=== PATIENT | male | born 1950 | race Caucasian/White ===

== ENCOUNTER 2017-09-24 12:14 | Emergency (ER) | payer OTHER, MEDICARE ==
[~2017-09-24] VITALS: Ht 182.9 cm; Wt 93.0 kg
[~2017-09-24 12:14] MED LIST: NORCO 5-325 TA1 EACH PO; ROBAXIN-750750 M1 PO
--- NOTE | 2017-09-24 13:11 | ED UPPER/LOWER EXTREMITY COMPL ---
History of Present Illness General Chief Complaint: Lower Extremity Problems Stated Complaint: RT LEG CLOT Source: patient Exam Limitations: no limitations Vital Signs & Intake/Output Vital Signs & Intake/Output Vital Signs Date Time Temp Pulse Resp B/P B/P Pulse O2 O2 Flow FiO2 Mean Ox Delivery Rate 09/24 1417 98.5 78 17 133/74 97 Room Air 09/24 1242 96.4 80 18 143/84 96 Room Air Allergies Coded Allergies: No Known Allergies (09/23/17) Reconcile Medications Hydrocodone/Acetaminophen (Esbon 5-325 Tablet) 5 MG-325 MG TABLET 1-2 TAB PO Q4-6 PRN PRN severe pain Methocarbamol (Robaxin-750) 750 MG TABLET 1 TAB PO TID PRN PAIN Rivaroxaban (Xarelto) 15 MG TABLET 1 TAB PO BID DVT TAKE WITH FOOD Triage Note: PT TO ER C/C +RLE DVT CONFIRMED VIA U/S AT [facility] THIS AM. 7/10 PAIN, TOOK NORCO TAB AT 1000. DENIES C/P OR SOB. + SWELLING TO RLE Triage Nurses Notes Reviewed? yes Onset: Gradual Duration: getting worse Timing: recent history Severity: moderate Severity Numbers: 5 HPI: Patient is a 67-year-old male with an unremarkable past medical history who has 100 year pack history smoker who presents emergency room 5 days ago patient actually struck the back of his calf to a boat and since patient has been complaining of worsening pain and swelling to the calf and behind the knee region. Patient was evaluated yesterday [place] [facility] room for his right calf and knee pain where he received blood work and x-rays with unremarkable findings patient was advised to present to [facility] the following days, today to receive ultrasound which patient has a verbal over the phone findings to Dr. AYOUB for concerns of complete occlusion of the popliteal vein to the right lower extremity. Patient denies any fever chills chest pain arm pain jaw pain hemoptysis dyspnea on exertion and shortness of breath palpitations or extremity paresthesia weakness. (Luke Palomino) Past History Travel History Traveled to [place] past 21 day No Medical History Any Pertinent Medical History? none Neurological: NONE EENT: NONE Cardiovascular: NONE Respiratory: NONE Gastrointestinal: NONE Hepatic: NONE Renal: NONE Musculoskeletal: NONE Psychiatric: NONE Endocrine: NONE Blood Disorders: NONE Surgical History Surgical History: non-contributory Psychosocial History What is your primary language Ghanaian Tobacco Use: Current Daily Use Daily Tobacco Use Amount/Type: => 5 Cigarettes daily Family History Hx Contributory? No (Luke Palomino) Review of Systems Review of Systems Constitutional: Reports: no symptoms. EENTM: Reports: no symptoms. Respiratory: Reports: no symptoms. Cardiovascular: Reports: no symptoms. Gastrointestinal/Abdominal: Reports: no symptoms. Genitourinary: Reports: no symptoms. Musculoskeletal: Reports: see HPI, joint pain, joint swelling. Skin: Reports: no symptoms. Neurological/Psychological: Reports: no symptoms. Hematologic/Endocrine: Reports: no symptoms. Immunological: Reports: no symptoms. All Other Systems: Reviewed and Negative (Luke Palomino) Physical Exam Physical Exam General Appearance: no apparent distress, alert, comfortable Head: atraumatic Eyes: Bilateral: normal appearance. Ears, Nose, Throat: hearing grossly normal Neck: normal inspection Cardiovascular/Respiratory: normal breath sounds, normal peripheral pulses Neurologic/Tendon: normal sensation, normal motor functions, normal tendon functions, responds to pain, no evidence tendon injury, no pulse deficit Skin: intact, normal color, warm/dry Diagram Legs Front/Back 1) Mild swelling and moderate point tenderness, right lower extremity neurovascular intact pedal pulse +2 capillary refill less than 2 seconds. (Luke Palomino) Progress Differential Diagnosis: arterial insufficiency, compartment syndrome, contusion, dislocation, DVT, fracture, gout, septic arthritis, sprain, tendon injury Plan of Care: Patient was neurovascularly intact to right lower extremity, patient denies any cardiovascular or respiratory complaints no suspicion at this time FOR PULMONARY embolism, it is noted to me that we tried to page vascular surgery however health unit clerk STATES that vascular surgery is not on-call until after 4 PM. Due to this I discussed disposition plan with Dr. AYOUB who advised patient to be given Xarelto PRESCIPTION and to follow-up tomorrow with vascular surgery. Discussed disposition plan with patient who agrees and has no questions. (Luke Palomino) Departure Departure Disposition: HOME OR SELF CARE Condition: Stable Clinical Impression Primary Impression: Popliteal DVT (deep venous thrombosis) Referrals: Hakan MARY,Eulalia Yang MD,Luke Marinleli (PCP/Family) Additional Instructions: As discussed begin to elevate her foot for swelling begin the prescription of Xarelto for your symptoms, follow up today to make an appointment for vascular surgeon Dr. Mcclendon If symptoms worsen or if YOU develop any new concerning symptom return to emergency room. Departure Forms: Customer Survey General Discharge Information Prescriptions: Current Visit Scripts Rivaroxaban (Xarelto) 1 TAB PO BID #42 TAB TAKE WITH FOOD (Luke Palomino) PA/[employer] TEMP Co-Sign Statement Statement: ED Attending supervision documentation- x I saw and evaluated the patient. I have also reviewed all the pertinent lab results and diagnostic results. I agree with the findings and the plan of care as documented in the PA's/H[employer] TEMP's documentation. [] I have reviewed the ED Record and agree with the PA's/HUM[employer] TEMP's documentation. [] Additions or exceptions (if any) to the PAs/HUM[employer] TEMP's note and plan are summarized below: [] (Fernando MARY,Morgan)
[2017-09-24] MEDS ORDERED: XARELTO15 M1 PO (14:01)
[2017-09-24 14:17] VITALS: BP 133/74
== END 2017-09-24 14:23 ==
LOC: ERH 12:14
DX: I82.431 Acute embolism and thrombosis of right popliteal vein (principal)